=== PATIENT | female | born 1970 | race American Indian/Alaskan Native ===

== ENCOUNTER 2018-05-09 10:29 | Day surgery (SDC) | payer OTHER ==
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
[~2018-05-09 10:29] MED LIST: ANCEF/NS 1 GM/50 ML 1 GM/50 ML BAG IV NR
[2018-05-09 11:33] LABS: Hematocrit 39.9 % (30.3-42.9); Hemoglobin 13.1 gm/dl (10.1-14.3); Mean Corpuscular HGB Conc 33 % (30-34); Mean Corpuscular Volume 83 fl (79-97); Platelet Count 287 K/mm3 (140-440); Red Blood Count 4.84 M/mm3 (3.65-5.03); Red Cell Distribution Width 14.5 % (13.2-15.2)
[2018-05-09] MEDS ORDERED: LACTATED RINGERS 1,000 ML ONE (14:23)
[2018-05-09] MEDS ORDERED: VERSED ONE (14:23)
[2018-05-09] MEDS ORDERED: ZOFRAN IV PRN (14:41)
[2018-05-09] MEDS ORDERED: DILAUDID IV PRN (14:41)
--- NOTE | 2018-05-09 14:41 | Anesthesia Day of Surgery ---
Anesthesia Day of Surgery - Day of Surgery Patient Examined: Yes Patient H&P Reviewed: Yes Patient is NPO: Yes
--- NOTE | 2018-05-09 14:41 | Anesthesia Consultation ---
Anesthesia Consult and Med Hx Date of service: 05/09/18 - Airway Anesthetic Teeth Evaluation: Good ROM Head & Neck: Adequate Mental/Hyoid Distance: Adequate Mallampati Class: Class II Intubation Access Assessment: Probably Good - Pulmonary Exam CTA: Yes - Cardiac Exam Cardiac Exam: RRR - Pre-Operative Health Status ASA Pre-Surgery Classification: ASA2 Proposed Anesthetic Plan: General - Pulmonary Hx Sleep Apnea: Yes (Resolved after losing weight) - Central Nervous System Hx Psychiatric Problems: No - Other Systems Hx Alcohol Use: Yes (Occas) Hx Cancer: No
[2018-05-09] MEDS ORDERED: LUGOL'S SOLUTION 5% TP ONE (15:56)
[2018-05-09] MEDS ORDERED: MONSEL'S TP ONE ×2 (15:56→16:35)
[2018-05-09] MEDS ORDERED: NACL 0.9% IR ONE (16:25)
[2018-05-09] MEDS ORDERED: ROBINUL ONE ×2 (16:42→16:44)
[2018-05-09] MEDS ORDERED: DECADRON ONE (16:44)
[2018-05-09] MEDS ORDERED: DIPRIVAN 10 MG/ML IV ONE (16:44)
[2018-05-09] MEDS ORDERED: SUBLIMAZE ONE (16:44)
[2018-05-09] MEDS ORDERED: ZOFRAN ONE (16:44)
[2018-05-09] MEDS ORDERED: TORADOL ONE (16:44)
--- NOTE | 2018-05-09 16:46 | Operative Report ---
Operative Report Operative Report: Date of procedure: 05/09/2018 Pre-operative diagnosis: HGSIL favoring THOM 2 Unsatisfactory colposcopy Post-operative diagnosis: Same Procedure name(s): Exam under anesthesia Superficial LEEP of what appeared to be remanent of cervical tissue Removal of vaginal sidewall lesion Surgeon: Dr. Tse Electric Vehicle Electrician: DOREEN Anesthesia: Gen. endotracheal anesthesia EBL: Minimal Urine output: Patient voided prior to procedure. Fluids: 500 mL Findings: During the exam under anesthesia there appeared to be tissue that was consistent with cervical tissue that was among tissue that is believed to be vaginal tissue. The portion that appeared to be cervical tissue was somewhat enveloped within the vaginal tissue. And it was very minimal. There was also several lesions along the vaginal sidewall of various sizes that appeared to be condyloma one of which was lanced and sent for pathology. Indications: Patient was referred to me secondary to having a Pap smear that showed the above-stated findings. Patient underwent colposcopy but due to inability to visualize the cervix due to patient discomfort and physical limitations the colposcopy was not satisfactory. Decision was made at this time that given the endocervical curettage was negative however the Pap smear was abnormal, a LEEP was needed at this time. All risk benefits and alternatives were discussed with the patient. All questions were addressed and answered. Procedure: She was examined operating room where she was placed in dorsal lith otomy position and placed under general anesthesia with legs placed in Fercho stirrups. Care was taken not to have extension of the left leg as this is the leg that patient had limited mobility. This leg remain stationary during the procedure. And was slightly flexed at the hip and at the knee. Patient was then prepped and draped in sterile fashion. At this time that the insulated Smith ruano speculum was placed inside of the vagina with the above-stated findings noted. The tissue that was identified and believed to be a small cervical stump. This is was underwent a very shallow LEEP passing the device in a horizontal direction with scan tissue removed and passed off to pathology. Pt noted to have several condlymoma in the vagina along the vaginal zavaleta. One of these lesions on the right lateral wall was removed and sent to pathology for review. All areas were noted to be hemostatic. All instruments were removed from the abdomen. Pt was taken into the PACU awake and in stable condition. No antibx were given at time of procedure.
--- NOTE | 2018-05-09 16:51 | Short Stay Summary ---
Short Stay Documentation Date of service: 05/09/18 - History H&P: dictated Social history: other (see hpi) - Allergies and Medications Current Medications: Allergies codeine Allergy (Verified 05/01/18 10:09) Rash Home Medications Medication Instructions Recorded Confirmed Last Taken Type Cyanocobalamin (Vitamin B-12) 2,500 mcg PO DAILY 05/01/18 05/09/18 05/08/18 09:00 History [Vitamin B12] Ergocalciferol(Vitamin D2)(Nf) 400 unit PO DAILY 05/01/18 05/09/18 05/08/18 09:00 History [Vitamin D (Nf)] Ubidecarenone [Coq10] 50 mg PO DAILY 05/01/18 05/09/18 05/08/18 09:00 History Active Medications Hydromorphone HCl (Dilaudid) 0.5 mg IV Q10MIN PRN PRN Reason: Pain , Severe (7-10) Stop: 05/09/18 23:59 Ondansetron HCl (Zofran) 4 mg IV ONCE PRN PRN Reason: Nausea And Vomiting - Physical exam Breasts: - Brief post op/procedure progress note Date of procedure: 05/09/18 Pre-op diagnosis: HGSIL favoring THOM 2 2. Unsatisfactory colposcopy Post-op diagnosis: same Procedure: Exam under anesthesia Removal of vaginal wall lesion Superficial LEEP of cervical stump Anesthesia: GETA Findings: The operative report Surgeon: SUHAIL SERVIN Estimated blood loss: minimal Pathology: list (LEEP specimen 2. Vaginal sidewall lesion) Specimen disposition: to lab Condition: stable - Hospital course Hospital course: Was made for above-stated procedure. Patient underwent above-stated procedure that was not complicated. Patient will be discharged home once recovery is completed in PACU. - Disposition Condition at discharge: Good Disposition: DC-01 TO HOME OR SELFCARE - Discharge Diagnoses (1) THOM II (cervical intraepithelial neoplasia II) Status: Acute Short Stay Discharge Plan Activity: other (pelvic rest for the next 2 weeks) Follow up with: CHRIS HAAS MD [Primary Care Provider] - 7 Days
[2018-05-09 18:08] VITALS: BP 138/68
== END 2018-05-09 10:30 | disposition home or self-care (01) ==
LOC: OR 10:29
PROVIDERS: ATTEND Obstetrics & Gynecology
DX: N87.0 Mild cervical dysplasia (principal); L83 Acanthosis nigricans; N89.4 Leukoplakia of vagina; D28.1 Benign neoplasm of vagina; G47.30 Sleep apnea, unspecified; Z79.899 Other long term (current) drug therapy; Z88.5 Allergy status to narcotic agent; Z72.89 Other problems related to lifestyle; Z90.710 Acquired absence of both cervix and uterus; Z98.891 History of uterine scar from previous surgery
CPT/HCPCS: 36415; 57100; 57522; 85027; 88305; J1100; J1885; J2250; J2405; J2704; J3010; J7120